=== PATIENT | male | born 1950 | race Caucasian/White ===

== ENCOUNTER 2021-07-31 05:58 | Day surgery (SDC) | payer OTHER ==
[2021-07-23 17:21] VITALS: BMI 25.8
[2021-07-31] MEDS ORDERED: MIDAZOLAM HCL 2 MG/2 ML SINGLE DOSE VIAL ONE ×2 (07:01→07:08)
[2021-07-31] MEDS ORDERED: BUPIVACAINE HCL/PF 0.5% (5 MG/ML) 30 ML VIAL IJ ONE (07:01)
[2021-07-31] MEDS ORDERED: SODIUM CHLORIDE 0.9% P/F 10 ML VIAL IJ ONE (07:01)
[2021-07-31] MEDS ORDERED: BUPIVACAINE LIPOSOME/PF (EXPAREL) 266 MG/20 ML VIAL ONE (07:01)
[2021-07-31] MEDS ORDERED: BUPIVACAINE HCL 50 ML ONE (07:05)
[2021-07-31] MEDS ORDERED: SUCCINYLCHOLINE CHLORIDE 200 MG/10 ML SYRINGE ONE (07:08)
[2021-07-31] MEDS ORDERED: PROPOFOL 20 ML ONE ×3 (07:08)
[2021-07-31] MEDS ORDERED: THROMBIN (BOVINE) 5,000 UNIT VIAL TP ONE (07:15)
[2021-07-31] MEDS ORDERED: ceFAZolin SODIUM 1 GM VIAL ONE ×2 (07:15→08:10)
[2021-07-31] MEDS ORDERED: ePHEDrine SULFATE 50 MG/1 ML AMPULE ONE (08:09)
[2021-07-31] MEDS ORDERED: TRANEXAMIC ACID 1000 MG/10 ML VIAL ONE ×2 (08:10→09:44)
[2021-07-31] MEDS ORDERED: DEXAMETHASONE SOD PHOSPHATE 4 MG/1 ML VIAL ONE (08:10)
[2021-07-31] MEDS ORDERED: ONDANSETRON 4 MG/2 ML VIAL ONE (08:10)
[2021-07-31] MEDS ORDERED: BUPIVICAINE 0.25%/MORPH PF/KETOROLAC - 51ML DISP.SYRINGE IA ONE ×3 (08:12→09:20)
[2021-07-31] MEDS ORDERED: MAG HYDROX/AL HYDROX/SIMETH 30 ML UNIT-DOSE CUP PO PRN (10:10)
[2021-07-31] MEDS ORDERED: MAGNESIUM HYDROX 2400MG/30ML ORAL SUSPENSION 30 ML CUP PO PRN (10:10)
[2021-07-31] MEDS ORDERED: ONDANSETRON 4 MG/2 ML VIAL IVPUSH PRN ×2 (10:10→10:21)
[2021-07-31] MEDS ORDERED: LACTATED RINGERS SOLUTION 1,000 ML IV SCH (10:15)
[2021-07-31] MEDS ORDERED: oxyCODONE HCL 5 MG TABLET PO PRN ×2 (10:21)
[2021-07-31] MEDS ORDERED: ACETAMINOPHEN 500 MG TABLET (FP) PO SCH (10:30)
[2021-07-31] MEDS ORDERED: CEFAZOLIN 2 GM in DEXTROSE 5%-WATER - 50 ML IVPB SCH (16:00)
[2021-07-31 16:43] VITALS: BP 117/80; PULSE 72; TEMP 97.8
[2021-07-31] MEDS ORDERED: ATORVASTATIN CA 80 MG TABLET (FP) PO SCH (22:00)
[2021-07-31] MEDS ORDERED: GABAPENTIN 300 MG CAPSULE PO SCH (22:00)
[2021-07-31] MEDS ORDERED: metoPROLOL SUCCINATE 25 MG TAB.SR.24H (FP) PO SCH (22:00)
[2021-08-01] MEDS ORDERED: ASPIRIN 325 MG TABLET PO SCH (08:00)
[2021-08-01] MEDS ORDERED: PANTOPRAZOLE 40 MG TABLET PO SCH (10:00)
[2021-08-01] MEDS ORDERED: LISINOPRIL 5 MG TABLET PO SCH (10:00)
[2021-08-01] MEDS ORDERED: MULTIVITAMINS (DAILY MVI) TABLET (FP) PO SCH (10:00)
== END 2021-07-31 16:30 | disposition home or self-care (01) ==
LOC: FASUSAT 05:58 → EDSTATUS 08:00 → FASUSAT 16:30
PROVIDERS: ATTEND Orthopaedic Surgery
PROC: 8E0YXBZ Computer Assisted Procedure of Lower Extremity (ICD-10-PCS; 2021-07-31)
PROC: 8E0Y0CZ Robotic Assisted Procedure of Lower Extremity, Open Approach (ICD-10-PCS; 2021-07-31)
PROC: 0SRC0L9 Replacement of Right Knee Joint with Medial Unicondylar Synthetic Substitute, Cemented, Open Approach (ICD-10-PCS; principal; 2021-07-31 08:25)
DX: M17.11 Unilateral primary osteoarthritis, right knee (principal)
CPT/HCPCS: 20985; 27446; C1776; S2900; 73560-TC-RT-FY; 94760; 97010-GP; 97116-GP; 97162-GP